=== PATIENT | female | born 1955 | race Native Hawaiian/Other Pacific Islander ===

== ENCOUNTER 2019-02-21 10:18 | Outpatient (CLI) | payer OTHER | END 2019-02-21 23:59 | disposition home or self-care (01) | LOC: LABW 10:18 | DX: K59.1 Functional diarrhea (principal) | CPT/HCPCS: 82272; 82705; 83630; 87015; 87045; 87324; 87328; 87329; 87449; 87899 ==

== ENCOUNTER 2019-05-07 13:33 | Outpatient (CLI) | payer OTHER | END 2019-05-07 19:23 | disposition home or self-care (01) | LOC: LABW 13:33 | DX: M79.641 Pain in right hand (principal); M79.89 Other specified soft tissue disorders; M48.062 Spinal stenosis, lumbar region with neurogenic claudication | CPT/HCPCS: 36415; 82565; 84520 ==

== ENCOUNTER 2021-01-23 12:42 | Outpatient (CLI) | payer OTHER | END 2021-01-23 22:07 | disposition home or self-care (01) | LOC: RAD 12:42 | PROVIDERS: ATTEND Internal Medicine | DX: R06.02 Shortness of breath (principal) ==

== ENCOUNTER 2022-02-06 10:20 | Outpatient (CLI) | payer OTHER | END 2022-02-06 18:58 | disposition home or self-care (01) | LOC: LABW 10:20 | PROVIDERS: ATTEND Physician Assistant | DX: D72.828 Other elevated white blood cell count (principal); M06.4 Inflammatory polyarthropathy; M47.816 Spondylosis without myelopathy or radiculopathy, lumbar region; R76.0 Raised antibody titer | CPT/HCPCS: 86480 ==